=== PATIENT | female | born 1980 | race Caucasian/White ===

== ENCOUNTER 2024-03-02 14:34 | Outpatient (CLI) | payer BC | END 2024-03-02 14:35 | disposition home or self-care (01) | LOC: BICRAD 14:34 | PROVIDERS: ATTEND Internal Medicine Rheumatology | DX: M25.572 Pain in left ankle and joints of left foot (principal) ==

== ENCOUNTER 2024-03-11 10:28 | Outpatient (CLI) | payer BC | END 2024-03-11 10:29 | disposition home or self-care (01) | LOC: BICRAD 10:28 | PROVIDERS: ATTEND Internal Medicine Rheumatology | DX: M46.1 Sacroiliitis, not elsewhere classified (principal) | CPT/HCPCS: 72202 ==

== ENCOUNTER 2025-04-20 13:48 | Outpatient (CLI) | payer OTHER | END 2025-04-20 13:49 | disposition home or self-care (01) | LOC: BICMAMMO 13:48 | PROVIDERS: ATTEND Family Medicine | DX: Z12.31 Encounter for screening mammogram for malignant neoplasm of breast (principal) | CPT/HCPCS: 77063; 77067 ==